=== PATIENT | female | born 1965 | race Hispanic/Latino ===

== ENCOUNTER 2016-05-10 07:31 | Day surgery (SDC) | payer OTHER ==
[2016-05-10] MEDS ORDERED: ECOTRIN PO ONE ×2 (08:01→08:03)
[2016-05-10] MEDS ORDERED: NACL 0.9% 500 ML 500 ML ONE (08:02)
[2016-05-10] MEDS ORDERED: NACL 0.9% 500 ML 500 ML IV SCH (09:00)
[2016-05-10] MEDS ORDERED: HEPARIN/NS 5000 UNIT/500ML(CATH LAB) 1,000 ML IR ONE (10:12)
[2016-05-10] MEDS ORDERED: VERSED ONE (10:13)
[2016-05-10] MEDS ORDERED: SUBLIMAZE ONE (10:13)
[2016-05-10] MEDS: CALAN ONE ×2 (10:30→10:46)
[2016-05-10] MEDS: HEPARIN 10,000 UNITS/10 ML ONE ×2 (10:31→10:46)
[2016-05-10] MEDS: XYLOCAINE 2% INFILTRATI ONE ×2 (10:32→10:45)
[2016-05-10] MEDS: NITROGLYCERIN SYRINGE 3 ML ONE ×2 (10:34→10:46)
--- NOTE | 2016-05-10 11:30 | Short Stay Summary ---
Short Stay Documentation Date of service: 05/10/16 - History H&P: obtained from office - Allergies and Medications Current Medications: Allergies No Known Allergies Allergy (Verified 05/10/16 07:57) Home Medications Medication Instructions Recorded Confirmed Last Taken Type Aspirin EC [Ecotrin] 325 mg PO QDAY 05/10/16 05/10/16 05/09/16 History Duloxetine HCl [DULoxetine] 60 mg PO DAILY 05/10/16 05/10/16 05/09/16 History Gabapentin [Neurontin] 300 mg PO Q8HR 05/10/16 05/10/16 05/09/16 History Levothyroxine [Synthroid] 125 mcg PO QAM 05/10/16 05/10/16 05/09/16 History Metoprolol [Lopressor TAB] 50 mg PO DAILY 05/10/16 05/10/16 05/09/16 History Omeprazole 40 mg PO DAILY 05/10/16 05/10/16 05/09/16 History Rosuvastatin (Nf) [Crestor] 20 mg PO QHS 05/10/16 05/10/16 05/09/16 History Sulfamethoxazole/Trimethoprim 1 each PO DAILY 05/10/16 05/10/16 05/09/16 History [Bactrim DS TAB] metFORMIN [Glucophage] 500 mg PO BID 05/10/16 05/10/16 05/07/16 History Active Medications Sodium Chloride (Nacl 0.9% 500 Ml) 500 mls @ 50 mls/hr IV DIRECT EYAL Stop: 05/10/16 18:59 Last Admin: 05/10/16 08:23 Dose: 50 mls/hr - Brief post op/procedure progress note Date of procedure: 05/10/16 Pre-op diagnosis: pulmonary htn Post-op diagnosis: same Procedure: see report right and left heart catherization Anesthesia: local Estimated blood loss: none Pathology: none - Disposition Condition at discharge: Good Disposition: DISCHARGED TO HOME OR SELFCARE - Discharge Diagnoses (1) Pulmonary HTN Status: Chronic (2) Hyperlipemia, mixed Status: Chronic (3) Smoker Status: Chronic (4) SOB (shortness of breath) on exertion Status: Chronic Short Stay Discharge Plan Activity: advance as tolerated Diet: low fat, low cholesterol, low salt Wound: keep clean and dry
[2016-05-10] MEDS ORDERED: ULTRAM ONE (12:25)
[2016-05-10] MEDS ORDERED: ULTRAM PO ONE (12:27)
[2016-05-10] MEDS ORDERED: NORCO 5/325 PO PRN (13:13)
[2016-05-10 13:25] VITALS: BP 120/58
--- NOTE | 2016-05-10 14:00 | Cardiac Catherization Report ---
LEFT AND RIGHT HEART CATHETERIZATION CLINICAL INFORMATION: A 50-year-old female who is a smoker, who has hypertension, who has on echocardiogram, severe pulmonary hypertension, is here for shortness of breath with exertion. PROCEDURE: Left and right heart catheterization. Left heart catheterization performed via the right radial artery. Sterile technique, local anesthesia, 5-Polish radial sheath inserted. Right heart catheterization was done through the right brachial vein. A 20-gauge IV catheter was changed for a 6-Polish sheath. Sterile technique. Local anesthesia. LEFT HEART DETAILS: Left system engaged with a JL3.5 catheter. Left main is a large caliber vessel patent from proximally to distally. LAD is a large caliber vessel patent from proximally and distally. Diagonal 1 is large caliber vessel patent. Ramus is a large caliber vessel patent. Circumflex is a large caliber vessel patent. OM1 is a large caliber vessel patent. RCA engaged with JR4 is a large dominant vessel patent, bifurcates into medium caliber PDA and PLV that are patent. LV gram done in the [place] view shows normal LV function. LVEDP of 30 mmHg, LV is 117. Aortic is 117/64. No gradient across the aortic valve on pullback. The 5-Polish catheters were taken over a guidewire, 5-Polish radial sheath was discontinued. Radial dressing applied. No hematoma. No bleeding. RIGHT HEART CATHETERIZATION: Right heart catheterization was done through the 6-Polish brachial sheath and wedge was obtained and the patient's wedge was 38/43, average of 37 mmHg, PA was 88/43. RV was 87/21. RVSP of 29 mmHg. RA was a mean of 31 mmHg. Arterial saturation was 89% on 2 liters, pulmonary artery saturation was 65 and RV saturation was 64 and RA saturation was 66. There was no step up, there was no step down noted. The patient's cardiac output was 7 and cardiac index was 3.37 liters per minute. [place] was removed and 6-[place]ish brachial sheath was discontinued and dressing applied. No hematoma. No bleeding. SUMMARY: 1. Patent coronaries, left main, LAD, circ, ramus, and RCA with normal LV function. 2. Pulmonary pressures: The patient has severe pulmonary hypertension with a wedge of 37 mmHg, PA was 88/43, RV was 87/21. RA mean was 31 mmHg. The patient's cardiac output was 7 and cardiac index was 3.37. The patient had LVEDP of 30 mmHg. Discussed this with Dr. Nunes and with the patient and patient's family. JOB# [id number] JEANNIE/DIANA
== END 2016-05-10 13:45 | disposition home or self-care (01) ==
LOC: OPU 07:31
PROVIDERS: ATTEND Internal Medicine
DX: I27.2 Other secondary pulmonary hypertension (principal); F17.210 Nicotine dependence, cigarettes, uncomplicated; I10 Essential (primary) hypertension; E78.2 Mixed hyperlipidemia; I48.92 Unspecified atrial flutter; E66.9 Obesity, unspecified; Z68.39 Body mass index [BMI] 39.0-39.9, adult; Z82.49 Family history of ischemic heart disease and other diseases of the circulatory system
CPT/HCPCS: 36415; 85730; 93005; 93010; 93460; C1769; C1894; J1644; J2250; J3010; J7040; Q9967